=== PATIENT | female | born 1985 | race African-American/Black ===

== ENCOUNTER 2020-10-07 12:33 | Inpatient (IN) | payer MEDICAID, OTHER ==
[~2020-10-07] VITALS: Ht 165.1 cm; Wt 76.2 kg
[2020-10-07] MEDS ORDERED: SODIUM CHLORIDE 0.9% 1,000 ML IV ONE (13:00)
[2020-10-07 13:10] LABS: BASOPHILS % 0.3 % (0.0-2.0); HEMATOCRIT. 34.7 % (36.0-48.0); HEMOGLOBIN. 11.9 g/dL (12.0-16.0); LYMPHOCYTES % 33.4 % (20.0-50.0); MEAN CORPUSCULAR HEMOGLOBIN 31.6 pg (28.0-32.0); MEAN CORPUSCULAR VOLUME 91.9 fL (81.0-99.0); MEAN PLATELET VOLUME 7.6 fl (7.4-10.4); MONOCYTES % 9.3 % (2.0-8.0); PLATELET 339 x1000/uL (130-400); RED BLOOD CELL COUNT 3.77 mill/uL (4.2-5.4); RED CELL DISTRIBUTION WIDTH 13.4 % (11.6-14.6)
[2020-10-07 13:15] LABS: CHLORIDE 107 mEq/L (98-107)
[2020-10-07] MEDS ORDERED: DEXT 5%/LR + PITOCIN 20UNITS/L 1,000 ML IV ONE (13:15)
[2020-10-07 13:43] LABS: BG BASE EXCESS -7.5 mmol/L (-2.0-2.0); BG CARBOXYHEMOGLOBIN 0.3 % (0.5-1.5); BG DEOXYHEMOGLOBIN 1.8 % (0.0-5.0); BG FRACTION INSPIRED OXYGEN 28; BG HCO3 ACT 15.7 mmol/L (22.0-26.0); BG METHEMOGLOBIN 0.1 % (0.0-1.5); BG OXYGEN SATURATION 98.2 % (92.0-98.5); BG OXYHEMOGLOBIN 97.8 % (94.0-97.0); BG PH 7.415 (7.350-7.450); BG PO2 130.7 mmHg (75.0-100.0); BG SAMPLE SITE LEFT RADIAL; BG TOTAL HEMOGLOBIN 10.6 g/dL (12.0-18.0); BG VENT MODE NASAL CANNULA
[2020-10-07 13:45] LABS: B-HCG QUANTITATIVE 9155 mIU/mL (<3)
[2020-10-07 13:46] LABS: PROTHROMBIN TIME 10.4 sec (9.6-11.0)
[2020-10-07] MEDS ORDERED: HYDROMORPHONE HCL/PF 2MG/ML (OR) ONE (14:52)
[2020-10-07] MEDS ORDERED: DEXAMETHASONE 4MG/ML 1ML VIAL ONE (14:54)
[2020-10-07] MEDS ORDERED: CEFAZOLIN SODIUM 1000MG/VIAL ONE (14:54)
[2020-10-07] MEDS ORDERED: ACETAMINOPHEN 325MG TABLET PO PRN (15:15)
[2020-10-07] MEDS ORDERED: DEXT 5%/0.45% NACL KCL 20MEQ/L 1,000 ML IV SCH (15:15)
[2020-10-07] MEDS ORDERED: KETOROLAC 60MG/2ML VIAL IM NR (15:15)
[2020-10-07] MEDS ORDERED: ONDANSETRON HCL 4MG/2ML INJ IV PRN (15:15)
[2020-10-07 18:00] VITALS: BP 106/59
[2020-10-07 20:00] VITALS: BP 116/69
[2020-10-07] MEDS ORDERED: KETOROLAC 30MG/ML VIAL IV PRN (20:00)
[2020-10-07 22:00] VITALS: BP 116/69
[2020-10-07] MEDS: FAMOTIDINE 20MG/2ML VIAL IV SCH (22:11)
[2020-10-07] MEDS: CEFAZOLIN 1000MG PREMIX 50 ML IV SCH (22:12)
[2020-10-07 23:59] LABS: BASOPHILS % 0.1 % (0.0-2.0); HEMATOCRIT. 32.1 % (36.0-48.0); HEMOGLOBIN. 11.3 g/dL (12.0-16.0); LYMPHOCYTES % 12.9 % (20.0-50.0); MEAN CORPUSCULAR VOLUME 90.7 fL (81.0-99.0); MEAN PLATELET VOLUME 7.9 fl (7.4-10.4); PLATELET 244 x1000/uL (130-400); RED BLOOD CELL COUNT 3.54 mill/uL (4.2-5.4); RED CELL DISTRIBUTION WIDTH 13.8 % (11.6-14.6)
[2020-10-08] VITALS: BP 110/65
[2020-10-08] MEDS ORDERED: MULT-1116 MT (01:53)
[2020-10-08] MEDS ORDERED: FERR325T6 MT (01:53)
[2020-10-08] MEDS ORDERED: IBUP-2030 MT (01:53)
[2020-10-08 04:00] VITALS: BP 100/55
[2020-10-08] MEDS: CEFAZOLIN 1000MG PREMIX 50 ML IV SCH (05:07)
[2020-10-08 06:13] LABS: BASOPHILS % 0.1 % (0.0-2.0); HEMATOCRIT. 30.6 % (36.0-48.0); HEMOGLOBIN. 10.7 g/dL (12.0-16.0); MEAN CORPUSCULAR HEMOGLOBIN 31.5 pg (28.0-32.0); MEAN CORPUSCULAR VOLUME 90.4 fL (81.0-99.0); MONOCYTES % 6.3 % (2.0-8.0); NEUTROPHILS % 79.6 % (40.0-76.0); PLATELET 232 x1000/uL (130-400); RED BLOOD CELL COUNT 3.38 mill/uL (4.2-5.4); RED CELL DISTRIBUTION WIDTH 13.6 % (11.6-14.6)
[2020-10-08 07:20] LABS: CHLORIDE 112 mEq/L (98-107)
[2020-10-08 08:00] VITALS: BP 115/70
[2020-10-08] MEDS: FAMOTIDINE 20MG/2ML VIAL IV SCH (08:56)
[2020-10-08 10:07] VITALS: BP 115/70
== END 2020-10-08 10:41 | disposition home or self-care (01) | DRG 543 ==
LOC: ER 13:08 → ORIP 14:06 → 6EST 19:52
PROVIDERS: ADMIT Specialist; ATTEND Specialist
PROC: 10D17ZZ Extraction of Products of Conception, Retained, Via Natural or Artificial Opening (ICD-10-PCS; principal; 2020-10-07)
PROC: 30233N1 Transfusion of Nonautologous Red Blood Cells into Peripheral Vein, Percutaneous Approach (ICD-10-PCS; 2020-10-07)
DX: O03.1 Delayed or excessive hemorrhage following incomplete spontaneous abortion (principal); O03.33 Metabolic disorder following incomplete spontaneous abortion; Z20.822 Contact with and (suspected) exposure to COVID-19; D64.9 Anemia, unspecified; O99.012 Anemia complicating pregnancy, second trimester; E87.6 Hypokalemia; Z90.49 Acquired absence of other specified parts of digestive tract
CPT/HCPCS: 36415; 36600; 76830; 76856; 80048; 80053; 82375; 82805; 84702; 85025; 85027; 86850; 86900; 86920; 87426; 88305; 93005; 99291; J0690; J1100; J1170; J2590; J3490; J7030; P9016; P9021